=== PATIENT | male | born 1950 | race Caucasian/White ===

== ENCOUNTER 2018-03-11 12:37 | Inpatient (IN) | payer BC, OTHER ==
[~2018-03-11] VITALS: Ht 175.3 cm; Wt 100.7 kg
[~2018-03-11 12:37] MED LIST: ALLOPURINOL 10100 M1 PO; ASPIR 8181 M1 PO; COREG3.125 MG PO; EFFIENT10 MG PO; LIPITOR 20 MG T20 M1 PO; LOPRESSOR25 PO
[2018-03-11 12:43] VITALS: BP 189/109
[2018-03-11] MEDS ORDERED: LISINOPRIL2.5 MG PO (12:45)
[2018-03-11] MEDS ORDERED: PLAVIX 75 MG TA75 M1 PO (12:46)
[2018-03-11 13:10] LABS: ABSOLUTE BASOPHILS 0.1 thou/uL (0.0-0.2); ABSOLUTE EOSINOPHILS 0.2 thou/uL (0.0-0.7); ABSOLUTE LYMPHOCYTES 1.4 thou/uL (0.8-5.3); ABSOLUTE MONOCYTES 0.7 thou/uL (0.0-1.2); ABSOLUTE NEUTROPHILS 5.9 thou/uL (1.6-8.1); EOSINOPHILS 2.3 %; HEMATOCRIT 50.5 % (42.0-52.0); HEMOGLOBIN 16.9 gm/dL (14.0-18.0); LYMPHOCYTES 17.2 %; MCH 32.2 pg (26.0-34.0); MCHC 33.4 g/dL (28.0-37.0); MCV 96.5 fL (80.0-100.0); MONOCYTES 8.2 %; MPV 9.2 fl. (7.2-11.1); NUCLEATED RBCS 0 /100WBC; PLATELET COUNT* 201 thou/uL (150-400); POLYS 71.3 %; RBC 5.24 mil/uL (4.50-6.00); RDW-CV 14.2 % (10.5-14.5); WBC 8.3 thou/uL (4.0-11.0)
[2018-03-11 13:42] LABS: ANION GAP 8 mmol/L (7-16); BUN 12 mg/dL (7-18); CALCIUM 8.7 mg/dL (8.5-10.1); CHLORIDE 104 mmol/L (98-107); CO2 30 mmol/L (21-32); CREATININE 0.7 mg/dL (0.6-1.3); GLUCOSE 146 mg/dL (70-99); POTASSIUM 5.3 mmol/L (3.5-5.1); SODIUM 142 mmol/L (136-145)
[2018-03-11 13:55] LABS: ALBUMIN 3.5 g/dL (3.4-5.0); ALKALINE PHOSPHATASE 72 U/L (46-116); LIPASE 143 U/L (73-393); MAGNESIUM 1.9 mg/dL (1.8-2.4); NT-PRO BRAIN NAT PEPTIDE < 5 pg/mL (<300); SGOT 39 U/L (15-37); SGPT 32 U/L (30-65); TOTAL BILIRUBIN 0.7 mg/dL (<0.1-1.0); TOTAL PROTEIN 6.9 g/dL (6.4-8.2); TROPONIN-I LEVEL <0.06 ng/mL (<0.06)
--- NOTE | 2018-03-11 18:02 | 2DMMODE ---
[place] [address] 2 D/M-MODE ECHOCARDIOGRAM Name: MONICA HURD Room: [address] IN [facility]#: [id number] Admission: 03/11/18 Attend Phys: Sharmila Maldonado, Discharge: Date of : 52 Date of Service: 03/11/181801 Report #: [id number] THIS REPORT FOR: //name// APPROVED REPORT Study performed: 03/11/2018 15:22:49 EXAM: Comprehensive 2D, Doppler, and color-flow Echocardiogram Patient Location: In-Patient Room #: ER Status: routine BSA: 2.25 HR: 57 bpm BP: 147/85 mmHg Rhythm: NSR Other Information Study Quality: Good Indications CAD Chest Pain 2D Dimensions IVSd: 13.51 (7-11mm) LVOT Diam: 21.91 (18-24mm) LVDd: 48.16 mm PWd: 11.91 (7-11mm) Ascending Ao: 34.69 (22-36mm) LVDs: 34.32 (25-40mm) Aortic Root: 37.26 mm Volumes Left Atrial Volume (Systole) LA ESV Index: 23.30 mL/m2 Aortic Valve AoV Peak Noble.: 1.12 m/s AO Peak Gr.: 5.06 mmHg LVOT Max P.75 mmHg AO Mean Gr.: 2.76 mmHg LVOT Mean P.11 mmHg LVOT Max V: 0.83 m/s AO V2 VTI: 24.21 cm LVOT Mean V: 0.47 m/s MADAN (VTI): 2.80 cm2 LVOT V1 VTI: 17.96 cm Mitral Valve E/A Ratio: 0.58 MV Decel. Time: 404.03 [place] [address] 2 D/M-MODE ECHOCARDIOGRAM Name: MONICA HURD Room: [address] IN M.R.#: [id number] Admission: 03/11/18 Attend Phys: Sharmila Maldonado, Discharge: Date of : 52 Date of Service: 03/11/181801 Report #: [id number] MV E Max Noble.: 0.50 m/s MV PHT: 117.17 ms MVA (PHT): 1.88 cm2 TDI E/Lateral E': 6.25 E/Medial E': 10.00 Medial E' Noble.: 0.05 m/s Lateral E' Noble.: 0.08 m/s Pulmonary Valve PV Peak Noble.: 0.76 m/s PV Peak Gr.: 2.32 mmHg Tricuspid Valve RAP Estimate: 5.00 mmHg TR Peak Gr.: 22.72 mmHg RVSP: 27.00 mmHg PA Pressure: 27.00 mmHg Left Ventricle The left ventricle is normal size. There is mild global hypokinesis. Mild concentric left ventricular hypertrophy. Left ventricular systolic function is mildly decreased. LVEF is 45-50%. Grade I - abnormal relaxation pattern. Right Ventricle Right ventricle is dilated. The right ventricular systolic function is normal. Atria The left atrium size is normal. Right atrium is mildly dilated. Aortic Valve The aortic valve is normal in structure. No aortic regurgitation is present. There is no aortic valvular stenosis. Mitral Valve The mitral valve is normal in structure. There is no mitral valve regurgitation noted. No evidence of mitral valve stenosis. Tricuspid Valve The tricuspid valve is normal in structure. Trace tricuspid regurgitation. No pulmonary hypertension. Pulmonic Valve The pulmonary valve is normal in structure. Mild [place] [address] 2 D/M-MODE ECHOCARDIOGRAM Name: MONICA HURD Room: [address] IN [facility]#: [id number] Admission: 03/11/18 Attend Phys: Sharmila Maldonado, Discharge: Date of : 52 Date of Service: 03/11/18 180 Report #: [id number] Great Vessels The aortic root is normal in size. IVC is normal in size and collapses >50% with inspiration. Pericardium There is no pericardial effusion. <Conclusion> The left ventricle is normal size. Mild concentric left ventricular hypertrophy. Left ventricular systolic function is mildly decreased. LVEF is 45-50%. Grade I - abnormal relaxation pattern. There is mild global hypokinesis. Right ventricle is dilated. Right atrium is mildly dilated. Trace tricuspid regurgitation. No pulmonary hypertension. IVC is normal in size and collapses >50% with inspiration. <ELECTRONICALLY SIGNED> By: Jose Raymond MD, FACC 03/11/181801 01 01 Jose Raymond MD, FACC /INF
--- NOTE | 2018-03-11 18:18 | EKG ---
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 LEAL : 1950 Requested By: Joe Calderon Order Number: [id number] MD: Jose Raymond Measurements Intervals Jackson Rate: 57 P: 36 AK: 176 QRS: 206 QRSD: 107 T: -13 QT: 419 QTc: 408 Interpretive Statements Sinus rhythm Consider right ventricular hypertrophy Inferior infarct, age indeterminate Abnrm T, consider ischemia, anterolateral lds Compared to ECG 05/06/2016 08:48:12 Possible ischemia now present Myocardial infarct finding still present Electronically Signed On 03-11-2018 18:17:52 HR MANAGER by Jose Raymond [email or web address] <ELECTRONICALLY SIGNED> By: Jose Raymond MD, FACC 03/11/18 1817 1241 1241 Jose Raymond MD, FAC /EPI
[2018-03-11 18:38] VITALS: BP 174/92
[2018-03-11 19:14] VITALS: BP 153/87
[2018-03-11 23:30] VITALS: BP 151/89
[2018-03-12 03:08] LABS: GLYCOHEMOGLOBIN (HGB A1C) 6.4 % (4.8-5.6)
[2018-03-12 04:00] VITALS: BP 165/89
[2018-03-12 05:21] LABS: HEMATOCRIT 50.7 % (42.0-52.0); HEMOGLOBIN 16.8 gm/dL (14.0-18.0); MCH 32.4 pg (26.0-34.0); MCHC 33.1 g/dL (28.0-37.0); MCV 97.7 fL (80.0-100.0); MPV 8.9 fl. (7.2-11.1); RBC 5.19 mil/uL (4.50-6.00); RDW-CV 14.2 % (10.5-14.5); WBC 7.9 thou/uL (4.0-11.0)
[2018-03-12 05:45] LABS: CALCIUM 9.1 mg/dL (8.5-10.1); CREATININE 0.9 mg/dL (0.6-1.3); POTASSIUM 5.4 mmol/L (3.5-5.1)
[2018-03-12 05:48] LABS: ALBUMIN 3.5 g/dL (3.4-5.0); TOTAL BILIRUBIN 0.6 mg/dL (<0.1-1.0); TOTAL PROTEIN 6.4 g/dL (6.4-8.2)
[2018-03-12 08:38] VITALS: BP 182/92
[2018-03-12 11:30] VITALS: BP 153/81
--- NOTE | 2018-03-12 13:28 | CON ---
[address] [address] CONSULTATION Name: VICKEY,MONICA Room: [address] IN M.R.#: [id number] Admission: 03/11/18 Attend Phys: Sharmila Maldonado MD Discharge: Date of : 52 Report #: [id number] THIS REPORT FOR: //name// CC: Steff Maldonado DATE OF SERVICE: 03/12/2018 HISTORY OF PRESENT ILLNESS: The patient is a 67-year-old white male who I saw in the hospital after he had an episode of chest pain. The patient initially presented here to [place] in June of 2015. He was having chest pain. He underwent a stress test that was abnormal. He was brought to the [facility] as an outpatient for cardiac catheterization. He was found to have a subtotal occlusion of the right coronary artery filled by collaterals. He underwent reperfusion of the right coronary artery, had stent placed. There was a total of 3 stents placed. He was discharged on aspirin and Effient. The procedure was performed by Dr. Alexander. He then presented 10 months later with an acute inferior STEMI. The patient underwent urgent cardiac catheterization and appeared to be thrombus. He underwent balloon angioplasty. No additional stents were placed at that time. The patient has done fairly well since that time. He last saw Dr. Raymond in November. He was doing well at that time. Recently, he notes with exertion he developed some pain in his chest, became short of breath. Denied diaphoresis, nausea. The pain is relieved with rest. He has never had to take nitroglycerin. The pain is not related to food, coughing. He has had no trauma to the chest. Denied any bleeding anywhere. Because of these symptoms, he finally came to the hospital yesterday and was admitted. He notes exertional dyspnea. He has had no palpitation or syncope. PAST MEDICAL HISTORY: He has had cholecystectomy, hernia repair, rotator cuff surgery. In the past, he had a nerve stimulator in place. He has history of hypertension, hyperlipidemia. MEDICATIONS: Include allopurinol, aspirin, Lipitor, clopidogrel, lisinopril, metoprolol. ALLERGIES: He has a previous intolerance to CORTISONE. FAMILY HISTORY: Unknown. SOCIAL HISTORY: He is . He and his live in [place], [place]. 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 Quit smoking years ago. No alcohol abuse. REVIEW OF SYSTEMS: He has had no history of stroke, asthma, peptic ulcer disease, liver disease, kidney disease, cancer or psychiatric illness, chronic skin condition. He does wear glasses[place] [address] CONSULTATION Name: MONICA HURD Room: [address] IN M.R.#: [id number] Admission: 03/11/18 Attend Phys: Sharmila Maldonado MD Discharge: Date of : 52 Report #: [id number] PHYSICAL EXAMINATION: GENERAL: Revealed a middle-aged male who appeared in no distress. VITAL SIGNS: He had a blood pressure of 140/80s, pulse is 60. He is afebrile. HEENT: He is anicteric. Conjunctivae pink. Mucous membranes moist. NECK: Veins nondistended. No carotid bruits. Neck supple. CHEST: Clear to auscultation. CARDIOVASCULAR: Regular rate and rhythm. ABDOMEN: Soft. EXTREMITIES: Had no edema. Posterior tibial pulse 2+ bilaterally. SKIN: Warm, dry. NEUROLOGIC: Nonfocal. LABORATORY DATA: His ECG showed a sinus rhythm, evidence of previous inferior infarction. The patient had an echocardiogram that showed left ventricular hypertrophy, ejection fraction 45%. Right ventricular dilatation. His workup in the Emergency Room, he had normal heart size and mild changes only. His lab work, sodium 147, creatinine 0.9, glucose 106. Liver function studies were normal. Troponin 0.06. White blood cell count 7.9, hemoglobin 16.8. IMPRESSION AND RECOMMENDATIONS: 1. Crescendo angina. Recommend repeat cardiac catheterization. 2. Hypertension. The patient is on an GLORIA inhibitor and beta elvin. 3. Hyperlipidemia. The patient is on a statin drug. 4. Chronic back pain. The patient had a nerve stimulator in the past. 5. Previous tobacco abuse. <ELECTRONICALLY SIGNED> By: Elbert Buck MD, FACC 03/12/18 1328 0820 1220Davishelbi Buck MD, FAC /nt
[2018-03-12 15:10] VITALS: BP 131/71
[2018-03-12 15:13] LABS: ALBUMIN 3.3 g/dL (3.4-5.0); CALCIUM 8.9 mg/dL (8.5-10.1); CREATININE 0.9 mg/dL (0.6-1.3); TOTAL BILIRUBIN 0.5 mg/dL (<0.1-1.0); TOTAL PROTEIN 6.3 g/dL (6.4-8.2)
[2018-03-12 15:16] LABS: POTASSIUM 4.3 mmol/L (3.5-5.1)
[2018-03-12 19:30] VITALS: BP 139/80
[2018-03-13] VITALS (14 sets, daily range): BP systolic 111–168; BP diastolic 52–82
[2018-03-13 05:55] LABS: CHOLESTEROL 123 mg/dL (<200); HDL CHOLESTEROL 34 mg/dL (>40); LDL CHOLESTEROL 55 mg/dL (<100); TC:HDL 3.6 Ratio (Not establshd); TRIGLYCERIDE 173 mg/dL (<150); VLDL 35 mg/dL (<40)
[2018-03-13 06:01] LABS: SERUM ASSESSMENT Clear
--- NOTE | 2018-03-13 12:09 | CARD ---
[address] [address] CARDIAC CATH REPORT Name: MONICA HURD Room: 202-P ADM IN M.R.#: [id number] Admission: 03/11/18 Attend Phys: Sharmila Maldonado MD Discharge: Date of : 52 Report #: [id number] THIS REPORT FOR: //name// APPROVED REPORT Study performed: 03/13/2018 08:00:40 Patient Details Patient Status: In-Patient Room #: 202 The patient is a 67 year-old male Event Personnel Elbert Buck Printed Products Assembler, Lori Jeter RN Mix House Operator, Wendy Castillo RTR Monitor, Steff Hager Scrub Procedures Performed Art Access - Right radial artery Left Heart Cath w/or w/o Coronaries [facility] Indication Chest pain Risk Factors Arterial Hypertension, Hypercholesterolemia, Coronary Artery Disease Previous Procedures/Diagnoses Previous PCI Admission/Lab Medications/Medications given during procedure Heparin Unfract. Procedure Narrative The patient was brought electively to the Cardiac Catheterization Laboratory and was prepped and draped in a sterile manner. The right wrist was infiltrated with 2% Lidocaine subcutaneous anesthesia. A Slender Glidesheath sheath was inserted into the right radial artery. Coronary angiography was performed using coronary diagnostic catheters. The right coronary system was accessed and visualized with a Diagnostic 6Fr 3DRC catheter. The left coronary system was accessed and visualized with a Diagnostic 6Fr JL4 catheter. The left ventricle was accessed and visualized with a Diagnostic 6Fr angled pigtail catheter. Left ventricular/Aortic Valve gradient assessed via catheter pullback. [place] [address] CARDIAC CATH REPORT Name: MONICA HURD Room: [address] IN [facility].#: [id number] Admission: 03/11/18 Attend Phys: Sharmila Maldonado MD Discharge: Date of : 52 Report #: [id number] projection. Closure device was deployed with a 6 Fr Vasc-Band Reg 24cm. The patient tolerated the procedure well and there were no complications associated with the procedure. There was no hematoma. Intraoperative Conscious Sedation Sedation start time: 907 Case end Time: 942 Fentanyl 25 mcg Versed 2 mg Fluoro Time: 5.0 minutes Dose: DAP 08255 cGycm2 94.8 mGy Contrast Type and Amount: Visipaque 140 ml Coronary Angiography The patient's coronary anatomy is right dominant. Diagnostic Cath Left Main 30% distal stenosis LAD 0% stenosis Circumflex 50% mid stenosis Right Coronary proximal stent had 0% restenosis. Mid rca had 30% stenosis. Distal stent had 0% restenosis R PDA 50% mid stenosis Left Ventriculography The left ventricular ejection fraction is estimated to be 40-45%. Left ventricular wall motion abnormalities are present. There is no mitral insufficiency. moderate hypokinesis noted of the inferior wall Hemodynamics The aortic pressure is 119/85 mmHg with a mean of 98 mmHg. The left ventricular pressure is 142/10 mmHg with a mean of mmHg. The left ventricular end diastolic pressure is 16 mmHg. There was no gradient across the aortic valve upon pullback. Pullback from the left ventricle to the aorta revealed no gradient across the aortic valve. Conclusion 1. no restenosis noted of stents in the rca 2. 50% stenosis of the mid circumflex artery and 50% stenosis of the distal rca 3. LVEF 40-45% [place] [address] CARDIAC CATH REPORT Name: MONICA HURD Room: [address] IN M.R.#: [id number] Admission: 03/11/18 Attend Phys: Sharmila Maldonado MD Discharge: Date of : 52 Report #: [id number] Recommendations Aggressive Medical Therapy <ELECTRONICALLY SIGNED> By: Elbert Buck MD, FACC 03/13/18 1208 07 Elbert Buck MD, FACC /INF
[2018-03-14] VITALS (7 sets, daily range): BP systolic 123–136; BP diastolic 49–72
[2018-03-14] MEDS ORDERED: PREDNISONE 10 M10 MG PO (14:20)
[2018-03-14] MEDS ORDERED: IPRAT-ALBUT 0.5-3 ML INH (14:28)
[2018-03-14] MEDS ORDERED: AZITHROMYCIN 2250 MG PO (14:34)
[2018-03-14] MEDS ORDERED: NITROGLYCERIN0.4 MG SUBLING (15:26)
[2018-03-14] MEDS ORDERED: TYLENOL EXTRA500 MG PO (15:27)
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
== END 2018-03-14 16:05 | disposition home health service (06) | DRG 286 ==
LOC: M.ERS 12:37 → M.2W 14:26 → M.TBA-ER 14:26 → M.2W 18:56
PROVIDERS: Emergency Medicine Emergency Medical Services; Internal Medicine Cardiovascular Disease; ADMIT Internal Medicine
DX: I25.110 Atherosclerotic heart disease of native coronary artery with unstable angina pectoris (principal); I50.43 Acute on chronic combined systolic (congestive) and diastolic (congestive) heart failure; J96.00 Acute respiratory failure, unspecified whether with hypoxia or hypercapnia; J98.11 Atelectasis; I11.0 Hypertensive heart disease with heart failure; G89.29 Other chronic pain; M54.9 Dorsalgia, unspecified; J44.9 Chronic obstructive pulmonary disease, unspecified; E78.5 Hyperlipidemia, unspecified; Z95.5 Presence of coronary angioplasty implant and graft; Z79.82 Long term (current) use of aspirin; Z91.030 Bee allergy status; Z79.899 Other long term (current) drug therapy; Z88.8 Allergy status to other drugs, medicaments and biological substances; Z87.891 Personal history of nicotine dependence

== ENCOUNTER → 2018-05-14 | Outpatient (CLI) | payer BC, OTHER ==
[~2018-05-14] MED LIST changes: +AZITHROMYCIN 2250 MG PO; +IPRAT-ALBUT 0.5-3 ML INH; +LISINOPRIL2.5 MG PO; +NITROGLYCERIN0.4 MG SUBLING; +PLAVIX 75 MG TA75 M1 PO; +PREDNISONE 10 M10 MG PO; +TYLENOL EXTRA500 MG PO
--- NOTE | 2018-05-17 00:02 | SLEEP ---
[address] [address] SLEEP STUDY REPORT Name: MONICA HURD Room: [facility]#: [id number] Admission: 05/14/18 Attend Phys: Adriana Lancaster MD Discharge: Date of : 52 Report #: [id number] THIS REPORT FOR: //name// CC: Steff Lancaster MD This study has been reviewed in its entirety by a board certified sleep specialist DATE OF SERVICE: 05/14/2018 ATTENDING PHYSICIAN: Dr. Adriana Lancaster. The patient is 68-year-old who underwent sleep study at [facility] to rule out TRAMAINE. This was a split night study. The patient's weight was not reported. During the night study, the patient spent 370 minutes in bed and slept for 177 minutes with a low sleep efficiency of 48%. Sleep latency was 24 minutes with a REM latency of 206 minutes. Overall, sleep architecture showed an increased stage 1 sleep, normal stage 2 sleep, increased N3 sleep and reduced REM sleep, which was 15% of the total sleep time. During the initial diagnostic portion of the study, the patient slept for 65 minutes from 118 minutes of bedtime. During that time, the patient has no apneas, but 35 hypopneas. The patient's apnea hypopnea index was 32 per hour. The patient did not have REM sleep during the diagnostic portion. The patient's supine AHI was 48 per hour. EKG monitoring revealed an average heart rate of 60 beats per minute with a maximum 83 beats per minute. No sustained arrhythmias observed. EKG artifact seen during later part of study. PLMS were seen at an index of 33 per hour and 11 per hour caused EEG arousals. Nocturnal oximetry study during the diagnostic portion revealed an average oxygen saturation of 87%, with a lowest of 78%. 59 minutes were spent at an oxygen saturation less than 89%. The patient met the criteria for CPAP initiation. It was started at 6 cm water and titrated up to 19 cm water. Supine REM sleep was seen at the pressure of 18 cm water, but the patient's AHI was 19 per hour at that pressure. At a pressure of 19 cm water, the patient had 11 minutes of sleep. The patient had supine sleep throughout, but no REM sleep observed. The patient's AHI was 0 per hour and oxygen saturation remained above 88%. It is difficult [place] [address] SLEEP STUDY REPORT Name: MONICA HURD Room: [facility]#: [id number] Admission: 05/14/18 Attend Phys: Adriana Lancaster MD Discharge: Date of : 52 Report #: [id number] is the optimum pressure, but he would be eventually recommended. IMPRESSION: 1. Severe sleep apnea-hypopnea syndrome at an AHI of 32 per hour. 2. Nocturnal hypoxia secondary to obstructive sleep apnea, but resolved with CPAP. 3. Moderate PLMS which did improve while the patient on CPAP and the index reduced from 33 per hour to 15 per hour. RECOMMENDATIONS: 1. CPAP at 19 cm water should be used on a nightly basis. 2. Follow up in 4-6 weeks to assess compliance and also to review the download data. It should be noted that limited sleep was seen at the final pressure of 19 cm water and a download data would be helpful to make sure AHI remains less than 5 per hour. 3. Weight loss is advised. 4. Avoid FREIGHT TRUCKER depressants. 5. Cautioned regarding driving until symptoms of sleep apnea resolve with the use of CPAP. <ELECTRONICALLY SIGNED> By: Kash Danielson MD 05/17/18 0002 1708 1928Amuna Danielson MD /nt
== END ==
LOC: M.SLEEPLAB 20:20
DX: G47.33 Obstructive sleep apnea (adult) (pediatric) (principal); G47.61 Periodic limb movement disorder; J44.9 Chronic obstructive pulmonary disease, unspecified; R09.02 Hypoxemia; R06.83 Snoring

== ENCOUNTER 2019-02-14 22:35 | Inpatient (IN) | payer BC, OTHER ==
[~2019-02-14] VITALS: Ht 175.3 cm; Wt 109.8 kg
--- NOTE | 2019-02-14 22:35 | NUR ---
PT ADMITTED TO ER 18 WITH CHEST PAIN. CODE STEMI CALLED AT 2241 SEE STEMI DOCUMENTATION SHEET FOR TIMES AND MEDICATIONS. PT TRANSPORTED TO SCRIPT DEVELOPER VIA [facility]RETHER PER SCRIPT DEVELOPER AT 2305. [facility] INTACT. PT IN NO ACUTE DISTRESS AT THIS TIME.
[2019-02-14 22:40] VITALS: BP 202/115
[2019-02-14] MEDS ORDERED: METFORMIN HCL500 M3 PO (22:51)
[2019-02-14 22:54] LABS: ABSOLUTE BASOPHILS 0.1 thou/uL (0.0-0.2); ABSOLUTE EOSINOPHILS 0.2 thou/uL (0.0-0.7); ABSOLUTE LYMPHOCYTES 1.5 thou/uL (0.8-5.3); ABSOLUTE NEUTROPHILS 8.7 thou/uL (1.6-8.1); BASOPHILS 0.9 %; HEMATOCRIT 43.9 % (42.0-52.0); HEMOGLOBIN 14.9 gm/dL (14.0-18.0); LYMPHOCYTES 12.6 %; MCH 31.9 pg (26.0-34.0); MCV 93.7 fL (80.0-100.0); MONOCYTES 8.9 %; MPV 8.9 fl. (7.2-11.1); NUCLEATED RBCS 0 /100WBC; PLATELET COUNT* 227 thou/uL (150-400); POLYS 75.6 %; RBC 4.69 mil/uL (4.50-6.00); RDW-CV 13.4 % (10.5-14.5); WBC 11.5 thou/uL (4.0-11.0)
[2019-02-14 23:02] LABS: CALCIUM 9.3 mg/dL (8.5-10.1); CREATININE 1.4 mg/dL (0.6-1.3)
[2019-02-14 23:05] VITALS: BP 193/102
[2019-02-14 23:06] LABS: PROTIME 10.5 Seconds (9.20-11.50)
[2019-02-14 23:13] LABS: ALBUMIN 4.2 g/dL (3.4-5.0); TOTAL BILIRUBIN 0.4 mg/dL (<0.1-1.0); TOTAL PROTEIN 7.7 g/dL (6.4-8.2)
[2019-02-15] VITALS (33 sets, daily range): BP systolic 127–167; BP diastolic 58–90
--- NOTE | 2019-02-15 02:00 | NUR ---
PT. ADMITTED TO ROOM 7 AT 0030 POST CARDIAC CATH. INTERVENTION-1 STENT RCA. PT. ARRIVED TO UNIT WITH ARTERIAL SHEATH IN PLACE, TO BE PULLED AT 0230 BY ENVIRONMENTAL PLANNER. PT. VERY PLEASANT, DENIES PAIN. AND TWO FRIENDS PRESENT. SEE ADMISSION ASSESSMENT. 2L O2. SINUS RHYTHM. POST PROCEDURE EKG OBTAINED. PT. ORIENTED TO ROOM, INSTRUCTED TO LEAVE RIGHT LEG STRAIGHT, VERBALIZED UNDERSTANDING. CALL LIGHT IN REACH, WILL CONTINUE TO MONITOR.
[2019-02-15 05:14] LABS: HEMOGLOBIN 13.6 gm/dL (14.0-18.0); MCH 31.8 pg (26.0-34.0); MCHC 33.9 g/dL (28.0-37.0); MCV 93.6 fL (80.0-100.0); MPV 9.1 fl. (7.2-11.1); RBC 4.28 mil/uL (4.50-6.00); RDW-CV 13.5 % (10.5-14.5); WBC 8.7 thou/uL (4.0-11.0)
[2019-02-15 05:38] LABS: ALBUMIN 3.5 g/dL (3.4-5.0); ALKALINE PHOSPHATASE 71 U/L (46-116); ANION GAP 9 mmol/L (7-16); BUN 15 mg/dL (7-18); CALCIUM 8.8 mg/dL (8.5-10.1); CHLORIDE 106 mmol/L (98-107); CO2 27 mmol/L (21-32); CREATININE 0.9 mg/dL (0.6-1.3); GLUCOSE 128 mg/dL (70-99); POTASSIUM 4.1 mmol/L (3.5-5.1); SGOT 83 U/L (15-37); SGPT 49 U/L (30-65); SODIUM 142 mmol/L (136-145); TOTAL BILIRUBIN 0.5 mg/dL (<0.1-1.0); TOTAL PROTEIN 6.5 g/dL (6.4-8.2)
[2019-02-15 06:13] LABS: CHOLESTEROL 209 mg/dL (<200); HDL CHOLESTEROL 32 mg/dL (>40); LDL CHOLESTEROL 115 mg/dL (<100); TC:HDL 6.5 Ratio (Not establshd); TRIGLYCERIDE 313 mg/dL (<150); VLDL 63 mg/dL (<40)
[2019-02-15 06:25] LABS: SERUM ASSESSMENT Slight Lipemia
--- NOTE | 2019-02-15 08:23 | CARD ---
[address] [address] CARDIAC CATH REPORT Name: MONICA HURD Room: [address] ADM IN M.R.#: [id number] Admission: 02/14/19 Attend Phys: Mumtaz Ayala Discharge: Date of : 52 Report #: [id number] THIS REPORT FOR: //name// APPROVED REPORT Study performed: 02/14/2019 23:03:08 Patient Details Patient Status: ED Room #: The patient is a 68 year-old male Event Personnel Deeede Flores RN Compliance Director, Steff Castillo Compliance Director, Brendan Sterling RTR Scrub, Tristian Benjamin DESIGN MAINTENANCE ENGINEER Monitor, Armando Castillo Form Raiser Procedures Performed Left Heart Cath Coronaries, Bypass Grafts [id number] CCORCABG LAZARO Place w/wo Plasty Single RCA [id number] , Right transradial approach Indication STEMI (>0 to less than or equal to 6 hours), Dyspnea, Chest pain Risk Factors Obesity, Chronic Lung DiseaseHypercholesterolemia, Coronary Artery DiseaseHypertension Previous Procedures/Diagnoses Previous PCI, Previous IL Procedure Narrative The patient was brought emergently to the Cardiac Catheterization Laboratory and was prepped and draped in a sterile manner. The right femoral was infiltrated with 2% Lidocaine subcutaneous anesthesia. A 6fr Ultimum Sheath sheath was inserted into the right femoral artery. Coronary angiography was performed using coronary diagnostic catheters. The left coronary system was accessed and visualized with a Diagnostic 6 Fr JL 4 catheter. The left ventricle was accessed and visualized with a Diagnostic 6Fr Pigtail catheter. The patient tolerated the procedure well and there were no complications associated with the procedure. There was no hematoma. Intraoperative [place] [address] CARDIAC CATH REPORT Name: MONICA HURD Room: [address] IN [facility]#: [id number] Admission: 02/14/19 Attend Phys: Mumtaz Ayala Discharge: Date of : 52 Report #: [id number] Sedation start time: 11:23 Case end Time: 12:07 Fentanyl 50 mcg Versed 1 mg Fluoro Time: 13.6 minutes Dose: DAP 389890 cGycm2 2555.28 mGy Contrast Type and Amount: Visipaque 200 ml Coronary Angiography The patient's coronary anatomy is right dominant. Diagnostic Cath Left Main This is a large caliber vessel, patent with no flow-limiting lesions. LAD This is a moderate size caliber vessel, traversing the anterior wall and terminating at the apex. There is mild diffuse disease in the mid segment, 20%. Diagonal 1 This is a small to moderate size caliber vessel, patent with no flow-limiting lesions. Diagonal 2 This is a small to moderate size caliber vessel, patent with no flow-limiting lesions. Circumflex This is a small to moderate size caliber vessel, with a moderate stenosis in the mid segment, 60%. OM1 This is a small to moderate size caliber vessel, patent with no flow-limiting lesions. Right Coronary This is a dominant vessel, with previously placed stents in the proximal/ostium and mid/distal segments. Within the mid RCA stented segment, there is a subtotal restenotic lesion, with evidence of thrombus. There is KIM 2 blood flow in the distal RCA. This is the same site of his previous inferior wall IL presentation in 2017. During that presentation, only balloon angioplasty was able to be performed. R PDA This is a moderate size caliber vessel, patent with mild disease. RPLV This is a moderate size caliber vessel, with an occlusion in the mid segment. Left Ventriculography Left Ventriculography was not performed. An LVEDP was measured and there is no gradient across the outflow tract. A ventriculogram was not performed in view of an elevated creatinine. Hemodynamics The aortic pressure is 176/87 mmHg with a mean of 32 [place] [address] CARDIAC CATH REPORT Name: MONICA HURD FABIO Room: [address] IN .R.#: [id number] Admission: 02/14/19 Attend Phys: Mumtaz Ayala Discharge: Date of : 52 Report #: [id number] ventricular pressure is 174/12 mmHg with a mean of mmHg. The left ventricular end diastolic pressure is 23 mmHg. PCI Technique Lesion Anticoagulation was achieved with Angiomax. Patient was preloaded with Angiomax IV 17 ml. Percutaneous coronary intervention was performed on the mid right coronary artery. The lesion stenosis prior to intervention was 99% with KIM 2 flow. A 6F JR 4.0 Guide Catheter was used to engage the RCA ostium. A IG: Luge Wire 180 Interventional Guidewire was used to cross the lesion. BALLOON DILATION A Balloon catheter Trek RX 2.5 X 15 was inserted and inflated up to 14.00atm for 22seconds. Additional Inflation: 16.00atm for 19seconds. STENT DEPLOYMENT A drug-eluting stent Xience Elise 3.09Z34wx was inserted and inflated up to 14.00atm for 22seconds. POST STENT DEPLOYMENT BALLOON DILATION A Balloon catheter NC TREK RX 3.5X12 was inserted and inflated up to 18.00atm for 12seconds. Additional Inflation: 18.00atm for 15seconds. Additional Inflation: 20.00atm for 16seconds. Final angiography reveals 5 % stenosis with KIM 3 flow. Conclusion 1. Successful placement of a drug-eluting stent into the subtotal restenotic lesion within the mid RCA segment. 2. High pressure balloon angioplasty with a noncompliant balloon in the ostial/proximal RCA stent. 3. Moderate disease in the left circumflex artery. 4. Recommend dual antiplatelet therapy and aggressive risk factor management. <ELECTRONICALLY SIGNED> By: Armando Castillo MD 02/15/19821 1 1Armando Castillo MD /INF
--- NOTE | 2019-02-15 11:26 | NUR ---
Pt up from ICU. Pt is A&O. Resides at home with his . Independent. Pt has a cane that he can use for mobility if needed. Pt wears home o2 PRN provided through [employer], Pt also has a home neb and a cpap. Goal is home at dc, per nurse anticipate dc tomorrow.
--- NOTE | 2019-02-15 13:29 | EKG ---
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: : 1950 Requested By: Karen Santana Order Number: [id number] MD: Elbert Buck Measurements Intervals [place] Rate: 72 P: 67 [place]: 183 QRS: 110 QRSD: 112 T: 95 QT: 384 QTc: 421 Interpretive Statements Sinus rhythm Inferoposterior infarct, acute (RCA) Minimal ST elevation, anterior leads Lateral leads are also involved Probable RV involvement, suggest recording right precordial leads Compared to ECG 03/11/2018 12:41:58 ST (T wave) deviation now present Electronically Signed On 02-15-2019 13:29:33 SHRIMP PACKER by Elbert Buck [email or web address] <ELECTRONICALLY SIGNED> By: Elbert Buck MD, FACC 02/15/19 1329 224 [id number] Elbert Buck MD, FACC /EPI
--- NOTE | 2019-02-15 13:31 | EKG ---
[place] [address] ELECTROCARDIOGRAM REPORT Name: MONICA HURD Room: [address] ADM IN .R.#: [id number] Admission: 02/14/19 Attend Phys: Mumtaz Ayala Discharge: Date of : 52 Report #: [id number] THIS REPORT FOR: //name// [facility] Test Date: 2019-02-15 Test Time: 02:33:25 Pat Name: MONICA HURD Department: Room: [facility] Gender: M Pumpman: DENTON : 1950 Requested By: Armando Castillo Order Number: [id number] Monika MD: Elbert Buck Measurements Intervals [place] Rate: 64 P: 10 NC: 189 QRS: -13 QRSD: 113 T: 36 QT: 450 QTc: 465 Interpretive Statements Sinus rhythm Incomplete right bundle branch block Abnormal R-wave progression, late transition Inferior infarct, old Electronically Signed On 02-15-2019 13:30:48 RECORDIST by Elbert Buck [email or web address] <ELECTRONICALLY SIGNED> By: Elbert Buck MD, [facility] 02/15/19 1330 0233 023 Elbert Buck MD, FACC /EPI
--- NOTE | 2019-02-15 13:34 | EKG ---
[place] [address] ELECTROCARDIOGRAM REPORT Name: MONICA HURD Room: [address] ADM IN .R.#: [id number] Admission: 02/14/19 Attend Phys: Mumtaz Ayala Discharge: Date of : 52 Report #: [id number] THIS REPORT FOR: //name// [facility] Test Date: 2019-02-15 Test Time: 09:48:00 Pat Name: MONICA HURD Department: Room: [facility] Gender: M Dialysis Registered Nurse: : 1950 Requested By: Armando Castillo Order Number: [id number] [place] MD: Elbert Buck Measurements Intervals [place] Rate: 58 P: 40 CT: 189 QRS: -73 QRSD: 118 T: -61 QT: 473 QTc: 465 Interpretive Statements Sinus rhythm Nonspecific IVCD with LAD Inferior infarct, recent Abnormal lateral Q waves Electronically Signed On 02-15-2019 13:34:08 DIMENSIONAL ENGINEER by Elbert Buck [email or web address] <ELECTRONICALLY SIGNED> By: Elbert Buck MD, [facility] 02/15/19 1334 0948 09 Elbert Buck MD, FACC /EPI
--- NOTE | 2019-02-15 18:42 | NUR ---
RECEIVED PATIENT FROM ICU AROUND 1015. UPON ASSESSMENT I AGREE WITH THE ASSESSMENT OF THE ICU NURSE. PATIENT ORIENTED TO ROOM, PATIENT UP AD GIOVANNY, PATIENT SINUS RHYTHM ON TELE. HOURLY ROUNDING PERFORMED, POSSESSIONS AND CALL LIGHT WITHIN REACH. NC@1L PRN, CPAP AT NIGHT. LEFT GROIN CATH SITE DRESSING CLEAN, DRY AND INTACT.
[2019-02-16] VITALS: BP 119/55
--- NOTE | 2019-02-16 03:49 | NUR ---
ASSUMED CARE OF PT AT 1900, PT'S R FA IV INFILTRATED, AND WAS REMOVED. PT STATED THIS CAUSED HIM A HEADACHE, USE OF PRN PAIN MEDICATION WAS GIVEN WITH COMPLETE RELIEF. FLUIDS STOPPED AT 0100 PER ORDER. NO OTHER CONCERNS VOICED BY PT. CURRENTLY ASLEEP WITH CALL LIGHT WITHIN REACH.
[2019-02-16 04:00] VITALS: BP 155/71
[2019-02-16 08:00] VITALS: BP 143/78
[2019-02-16] MEDS ORDERED: BRILINTA90 MG PO ×2 (11:12→14:24)
[2019-02-16 12:18] VITALS: BP 143/78
[2019-02-16] MEDS ORDERED: LIPITOR 40 MG T40 M1 PO (14:24)
[2019-02-16 14:28] VITALS: BP 135/65
--- NOTE | 2019-02-16 15:41 | 2DMMODE ---
[place] [address] 2 D/M-MODE ECHOCARDIOGRAM Name: MONICA HURD Room: [address] IN [facility]#: [id number] Admission: 02/14/19 Attend Phys: Petar Alberts Discharge: 02/16/19 Date of : 52 Date of Service: 02/16/19 1540 Report #: [id number] THIS REPORT FOR: //name// APPROVED REPORT Study performed: 02/16/2019 10:41:19 EXAM: Comprehensive 2D, Doppler, and color-flow Echocardiogram Patient Location: In-Patient Room #: 200 Status: routine BSA: 2.26 HR: 55 bpm BP: 155/71 mmHg Rhythm: NSR Other Information Study Quality: Good Indications Acute [place] 2D Dimensions IVSd: 11.28 (7-11mm) LVOT Diam: 21.84 (18-24mm) LVDd: 51.67 mm PWd: 11.01 (7-11mm) Ascending Ao: 35.26 (22-36mm) LVDs: 34.15 (25-40mm) Aortic Root: 37.57 mm Volumes Left Atrial Volume (Systole) LA ESV Index: 23.10 mL/m2 Aortic Valve AoV Peak Noble.: 1.06 m/s AO Peak Gr.: 4.47 mmHg LVOT Max P.42 mmHg AO Mean Gr.: 2.28 mmHg LVOT Mean P.08 mmHg LVOT Max V: 1.05 m/s AO V2 VTI: 21.98 cm LVOT Mean V: 0.66 m/s MADAN (VTI): 3.83 cm2 LVOT V1 VTI: 22.45 cm Mitral Valve E/A Ratio: 0.72 MV Decel. Time: 267.28 ms MV E Max Noble.: 0.73 m/[place] [address] 2 D/M-MODE ECHOCARDIOGRAM Name: MONICA HURD Room: [address]#: [id number] Admission: 02/14/19 Attend Phys: Petar Alberts Discharge: 02/16/19 Date of : 52 Date of Service: 02/16/19 1540 Report #: [id number] PHT: 77.51 ms MVA (PHT): 2.84 cm2 TDI E/Lateral E': 7.30 E/Medial E': 7.30 Medial E' Noble.: 0.10 m/s Lateral E' Noble.: 0.10 m/s Pulmonary Valve PV Peak Noble.: 1.04 m/s PV Peak Gr.: 4.32 mmHg Left Ventricle The left ventricle is normal size. There is normal LV segmental wall motion. There is normal left ventricular wall thickness. Left ventricular systolic function is normal. LVEF is 55-60%. Grade I - abnormal relaxation pattern. Right Ventricle The right ventricle is normal size. The right ventricular systolic function is normal. Atria The left atrium size is normal. The right atrium size is normal. Aortic Valve The aortic valve is normal in structure. No aortic regurgitation is present. There is no aortic valvular stenosis. Mitral Valve The mitral valve is normal in structure. There is no mitral valve regurgitation noted. No evidence of mitral valve stenosis. Tricuspid Valve The tricuspid valve is normal in structure. There is no tricuspid valve regurgitation noted. Pulmonic Valve The pulmonary valve is normal in structure. Trace pulmonic regurgitation. Great Vessels The aortic root is normal in size. IVC is normal in size and collapses >50% with inspiration[place] [address] 2 D/M-MODE ECHOCARDIOGRAM Name: MONICA HURD Room: [address]#: [id number] Admission: 02/14/19 Attend Phys: Petar Alberts Discharge: 02/16/19 Date of : 52 Date of Service: 02/16/19 1540 Report #: [id number] There is no pericardial effusion. <Conclusion> The left ventricle is normal size. There is normal left ventricular wall thickness. Left ventricular systolic function is normal. LVEF is 55-60%. Grade I - abnormal relaxation pattern. IVC is normal in size and collapses >50% with inspiration. <ELECTRONICALLY SIGNED> By: Jose Raymond MD, FACC 02/16/19 1540 1540 1540 Jose Raymond MD, FACC /INF
--- NOTE | 2019-02-16 20:50 | NUR ---
PT VSS, SB ON TELE, A&OX4, UP AD GIOVANNY, HOURLY ROUNDING PERFORMED, POSSESSIONS AND CALL LIGHT WITHIN REACH. REC DISCHARGE ORDERS, REVIEWED WITH PATIENT AND SPOUSE. TELE MONITOR AND IV REMOVED WITHOUT COMPLICATION. PATIENT WALKED TO THE ER EXIT BY NURSING STAFF AND PICKED UP BY SPOUSE.
--- NOTE | 2019-02-17 08:53 | CON ---
[address] [address] CONSULTATION Name: MONICA HURDBERT Room: [address] IN M.R.#: [id number] Admission: 02/14/19 Attend Phys: Mumtaz Ayala Discharge: 02/16/19 Date of : 52 Report #: [id number] THIS REPORT FOR: //name// CC: Steff Alberts DATE OF SERVICE: 02/14/2019 INDICATION: Chest pain. HISTORY OF PRESENT ILLNESS: This is a 68-year-old gentleman with a history of ND, COPD, diabetes mellitus, presenting with acute onset of chest pain. He developed substernal chest pain, nonradiating several hours prior to ER presentation. He also felt diaphoretic and dyspneic. He denies any episodes of fever, nausea or diarrhea. The ECG in the ER revealed ST segment elevation in the inferior leads. PAST MEDICAL HISTORY: History of inferior wall ND in 2017, undergoing angioplasty only. Previous history of stent placement in 2016. COPD, on oxygen p.r.n. at home. Diabetes mellitus, hypertension and hypercholesterolemia. ALLERGIES: INCLUDE PREDNISONE. MEDICATIONS: Aspirin 81 mg daily, albuterol inhaler, Lipitor 20 mg daily, metoprolol 25 mg daily, Plavix 75 mg daily, lisinopril 10 mg daily, allopurinol, and metformin 500 mg daily. SOCIAL HISTORY: Denies tobacco use. FAMILY HISTORY: Negative for premature CAD. REVIEW OF SYSTEMS: Unobtainable. PHYSICAL EXAMINATION: VITAL SIGNS: Blood pressure is 170/80, heart rate is 90 beats per minute. GENERAL APPEARANCE: A mildly overweight male, in mild distress. HEENT: Normocephalic, atraumatic. Oral mucosa moist. NECK: Supple. LUNGS: Clear to auscultation. CARDIAC: Regular rate and rhythm, S1, S2 positive. ABDOMEN: Soft, nontender. EXTREMITIES: No cyanosis, 1+ bilateral lower extremity edema. LABORATORY VALUES: ECG reveals sinus rhythm with inferior [place] [address] CONSULTATION Name: MONICA HURD Room: [address]#: [id number] Admission: 02/14/19 Attend Phys: Mumtaz Ayala Discharge: 02/16/19 Date of : 52 Report #: [id number] ASSESSMENT AND PLAN: 1. Acute inferior wall myocardial infarction. The patient will be taken emergently to the cardiac Online Journalist. He was treated with aspirin, Brilinta, and heparin in the ER. 2. Hypertension, hypertensive. We will resume lisinopril and metoprolol. 3. Hypercholesterolemia, continue with Lipitor. 4. Diabetes mellitus, hold metformin for now. Check fingersticks and cover with insulin. 5. Chronic obstructive pulmonary disease, continue with oxygen therapy. <ELECTRONICALLY SIGNED> By: Armando Castillo MD 02/17/19 0853 0024 0138MD kayce Anderson
== END 2019-02-16 15:10 | disposition home or self-care (01) | DRG 246 ==
LOC: M.CL 22:35 → M.ERS 22:35 → M.CL 23:05 → M.TBA-ER 23:46 → M.ICU 23:46 → M.2W 02-15 11:05
PROVIDERS: Emergency Medicine; Internal Medicine Cardiovascular Disease; ADMIT Internal Medicine
PROC: 027044Z Dilation of Coronary Artery, One Artery with Drug-eluting Intraluminal Device, Percutaneous Endoscopic Approach (ICD-10-PCS; principal; 2019-02-14)
PROC: 4A023N7 Measurement of Cardiac Sampling and Pressure, Left Heart, Percutaneous Approach (ICD-10-PCS; principal; 2019-02-14)
PROC: B211YZZ Fluoroscopy of Multiple Coronary Arteries using Other Contrast (ICD-10-PCS; principal; 2019-02-14)
PROC: 5A09357 Assistance with Respiratory Ventilation, Less than 24 Consecutive Hours, Continuous Positive Airway Pressure (ICD-10-PCS; 2019-02-15)
DX: T82.855A Stenosis of coronary artery stent, initial encounter (principal); I21.19 ST elevation (STEMI) myocardial infarction involving other coronary artery of inferior wall; I50.33 Acute on chronic diastolic (congestive) heart failure; E78.00 Pure hypercholesterolemia, unspecified; J44.9 Chronic obstructive pulmonary disease, unspecified; I25.10 Atherosclerotic heart disease of native coronary artery without angina pectoris; Y83.8 Other surgical procedures as the cause of abnormal reaction of the patient, or of later complication, without mention of misadventure at the time of the procedure; E11.9 Type 2 diabetes mellitus without complications; I11.0 Hypertensive heart disease with heart failure; I25.2 Old myocardial infarction; Z87.891 Personal history of nicotine dependence; Z79.84 Long term (current) use of oral hypoglycemic drugs; Z79.82 Long term (current) use of aspirin; Z79.899 Other long term (current) drug therapy; Z88.8 Allergy status to other drugs, medicaments and biological substances; Z91.030 Bee allergy status; Z95.5 Presence of coronary angioplasty implant and graft; Y92.89 Other specified places as the place of occurrence of the external cause; Z99.81 Dependence on supplemental oxygen

== ENCOUNTER → 2020-11-29 | Outpatient (CLI) | payer BC, OTHER ==
[~2020-11-29] MED LIST changes: +BRILINTA90 MG PO; +LIPITOR 40 MG T40 M1 PO; +METFORMIN HCL500 M3 PO
== END ==
LOC: M.RAD 13:32
PROVIDERS: ATTEND Internal Medicine Cardiovascular Disease
DX: J98.4 Other disorders of lung (principal); I25.10 Atherosclerotic heart disease of native coronary artery without angina pectoris; I10 Essential (primary) hypertension; E78.2 Mixed hyperlipidemia; G47.33 Obstructive sleep apnea (adult) (pediatric)

== ENCOUNTER 2021-01-02 16:32 | Inpatient (IN) | payer BC, OTHER ==
[~2021-01-02] VITALS: Ht 175.3 cm; Wt 110.1 kg
[2021-01-02 16:39] VITALS: BP 161/77
[2021-01-02] MEDS ORDERED: ROSUVASTATIN CA10 MG PO (16:46)
[2021-01-02] MEDS ORDERED: VITAMIN D3125 MC1 PO (16:47)
[2021-01-02] MEDS ORDERED: CO Q-10100 M1 PO (16:47)
[2021-01-02] MEDS ORDERED: OSTEO BI-FLEX1 EAC1 PO (16:47)
[2021-01-02 17:51] LABS: ABSOLUTE BASOPHILS 0.1 thou/uL (0.0-0.2); ABSOLUTE EOSINOPHILS 0.3 thou/uL (0.0-0.7); ABSOLUTE LYMPHOCYTES 1.4 thou/uL (0.8-5.3); ABSOLUTE MONOCYTES 1.3 thou/uL (0.0-1.2); ABSOLUTE NEUTROPHILS 4.9 thou/uL (1.6-8.1); EOSINOPHILS 3.8 %; HEMATOCRIT 41.4 % (42.0-52.0); HEMOGLOBIN 13.7 gm/dL (14.0-18.0); LYMPHOCYTES 17.4 %; MCH 31.7 pg (26.0-34.0); MCHC 33.1 g/dL (28.0-37.0); MCV 95.8 fL (80.0-100.0); MONOCYTES 16.5 %; MPV 8.7 fl. (7.2-11.1); NUCLEATED RBCS 0 /100WBC; PLATELET COUNT* 185 thou/uL (150-400); POLYS 61.3 %; RBC 4.32 mil/uL (4.50-6.00)
[2021-01-02 18:03] LABS: CREATININE 0.8 mg/dL (0.6-1.3); POTASSIUM 4.7 mmol/L (3.5-5.1)
[2021-01-02 18:13] LABS: ALBUMIN 3.3 g/dL (3.4-5.0); MAGNESIUM 1.8 mg/dL (1.8-2.4); TOTAL BILIRUBIN 0.3 mg/dL (<0.1-1.0); TOTAL PROTEIN 7.1 g/dL (6.4-8.2)
[2021-01-02 21:51] VITALS: BP 140/70
[2021-01-03] VITALS (7 sets, daily range): BP systolic 140–163; BP diastolic 63–87
--- NOTE | 2021-01-03 11:17 | EKG ---
[place] [address] ELECTROCARDIOGRAM REPORT Name: VICKEYMONICA MCCARTHY Room: [facility] ADM IN .R.#: [id number] Admission: 01/02/21 Attend Phys: Petar Alberts Discharge: Date of : 52 Date of Service: 01/02/21 1650 Report #: [id number] THIS REPORT FOR: //name// [facility] ED Test Date: 2021-01-02 Test Time: 16:50:01 Pat Name: MONICA HURD Department: Room: [facility] Gender: M Leather Belt Loop Cutter: AMAURY : 1950 Requested By: Joe Calderon Order Number: [id number] MD: Elbert Buck Measurements Intervals [place] Rate: 67 P: 43 MA: 166 QRS: -51 QRSD: 106 T: -13 QT: 482 QTc: 509 Interpretive Statements Sinus rhythm Ventricular premature complex Abnormal R-wave progression, late transition Inferior infarct, old Prolonged QT interval Baseline wander in lead(s) I,III,aVL Compared to ECG 02/15/2019 09:48:00 Ventricular premature complex(es) now present Prolonged QT interval now present Intraventricular conduction delay no longer present Myocardial infarct finding still present Electronically Signed On 01-03-2021 11:17:05 CDT by Elbert Buck [email or web address] <ELECTRONICALLY SIGNED> By: Elbert Buck MD, [facility] 01/03/21 1117 49 49 Elbert Buck MD, [facility] /EPI
--- NOTE | 2021-01-03 14:23 | 2DMMODE ---
[place] [address] 2 D/M-MODE ECHOCARDIOGRAM Name: MONICA HURD Room: [facility] ADM IN [place].#: [id number] Admission: 01/02/21 Attend Phys: Petar Alberts Discharge: Date of : 52 Date of Service: 01/03/21 1422 Report #: [id number] THIS REPORT FOR: cc: Steff Cortez MD, Angela Michelle MD Blick,Elbert Ravi MD [facility] ~ APPROVED REPORT Study performed: 01/03/2021 11:20:35 EXAM: Comprehensive 2D, Doppler, and color-flow Echocardiogram Patient Location: In-Patient Room #: [facility] Status: routine BSA: 2.23 HR: 87 bpm BP: 141/63 mmHg Rhythm: NSR Other Information Study Quality: Good Indications Dyspnea Chest Pain 2D Dimensions IVSd: 9.63 (7-11mm) LVOT Diam: 22.67 (18-24mm) LVDd: 57.22 mm PWd: 10.21 (7-11mm) Ascending Ao: 34.58 (22-36mm) LVDs: 34.05 (25-40mm) Aortic Root: 37.75 mm Volumes Left Atrial Volume (Systole) LA ESV Index: 22.90 mL/m2 Aortic Valve AoV Peak Noble.: 1.97 m/s AO Peak Gr.: 15.49 mmHg LVOT Max P.52 mmHg AO Mean Gr.: 8.41 mmHg LVOT Mean P.26 mmHg LVOT Max V: 1.46 m/s AO V2 VTI: 36.34 cm LVOT Mean V: 0.80 m/s MADAN (VTI): 3.02 cm2 LVOT V1 VTI: 27.15 [place] [address] 2 D/M-MODE ECHOCARDIOGRAM Name: MONICA HURD Room: [address] IN [facility].#: [id number] Admission: 01/02/21 Attend Phys: Petar Alberts Discharge: Date of : 52 Date of Service: 01/03/21 1422 Report #: [id number] Mitral Valve E/A Ratio: 0.70 MV Decel. Time: 196.83 ms MV E Max Noble.: 0.80 m/s MV PHT: 57.08 ms MVA (PHT): 3.85 cm2 TDI E/Medial E': 4.71 Medial E' Noble.: 0.17 m/s Pulmonary Valve PV Peak Noble.: 1.28 m/s PV Peak Gr.: 6.56 mmHg Left Ventricle The left ventricle is normal size. There is normal LV segmental wall motion. There is normal left ventricular wall thickness. Left ventricular systolic function is normal. The left ventricular ejection fraction is within the normal range. LVEF is 55-60%. Grade I - abnormal relaxation pattern. Right Ventricle The right ventricle is normal size. The right ventricular systolic function is normal. Atria The left atrium size is normal. The right atrium size is normal. Aortic Valve The aortic valve is normal in structure. No aortic regurgitation is present. There is no aortic valvular stenosis. Mitral Valve The mitral valve is normal in structure. There is trace mitral valve regurgitation noted. No evidence of mitral valve stenosis. Tricuspid Valve The tricuspid valve is normal in structure. Unable to assess PA pressure. Trace tricuspid regurgitation. Pulmonic Valve The pulmonary valve is normal in structure. [place] [address] 2 D/M-MODE ECHOCARDIOGRAM Name: MONICA HURD Room: [address] IN [facility]#: [id number] Admission: 01/02/21 Attend Phys: Petar Alberts Discharge: Date of : 52 Date of Service: 01/03/21 1422 Report #: [id number] Great Vessels The aortic root is normal in size. IVC is normal in size and collapses >50% with inspiration. Pericardium There is no pericardial effusion. <Conclusion> Left ventricular systolic function is normal. The left ventricular ejection fraction is within the normal range. <ELECTRONICALLY SIGNED> By: Elbert Buck MD, FACC 01/03/211421 21 21 Elbert Buck MD, FACC /INF
--- NOTE | 2021-01-03 16:03 | CON ---
[address] [address] CONSULTATION Name: MONICA HURD Room: [place] [address] ADM IN M.Angi.#: [id number] Admission: 01/02/21 Attend Phys: Mumtaz Ayala Discharge: Date of : 52 Report #: [id number] THIS REPORT FOR: cc: Steff Cortez MD,Steff Buck,Elbert Ravi MD [facility] ~ cc: Steff Cortez MD DATE OF CONSULTATION: 01/03/2021 CARDIOLOGY CONSULTATION HISTORY OF PRESENT ILLNESS: The patient is a 70-year-old white male who I was asked to see in the hospital today after he complained of being short of breath. The patient had a coronary stent placed here at [facility] [place] years ago. He presented in 12/2018 with a myocardial infarction. 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 He last saw Dr. Raymond in September of this year here at [place]. He complained of exertional dyspnea and Dr. Raymond recommended discontinue Brilinta and he was referred to a radiotelephone operator. Recently, the patient had increasing shortness of breath. He is unable to lie flat in bed at night. He has been coughing. He denied any significant chest pain, jaw pain or arm pain. He has had no fever or edema. He denied any palpitations or syncope. Because of shortness of breath, his finally brought him to the Emergency Room last night and he was admitted for further evaluation and treatment. PAST MEDICAL HISTORY: He has had previous cholecystectomy, hernia repair, rotator cuff surgery. He previously had a spinal cord stimulator implant, which was subsequently discontinued. He has a history of hypertension, diabetes, hyperlipidemia. CURRENT MEDICATIONS: Include allopurinol, aspirin, lisinopril, metformin, metoprolol, Lipitor. ALLERGIES: He has no known drug allergies. FAMILY HISTORY: His brother of heart attack. SOCIAL HISTORY: He is . He and his live in [place], [place]. He is retired from [employer]. Used to smoke a pack of cigarettes a day, quit in the . Rarely drinks alcohol. REVIEW OF SYSTEMS: He has no history of stroke. He does have sleep apnea, uses CPAP. He uses oxygen at night, also during the day for increased shortness of breath. No history of liver disease, kidney disease, cancer, [place] [address] CONSULTATION Name: MONICA HURD Room: [address] IN [facility]#: [id number] Admission: 01/02/21 Attend Phys: Mumtaz Ayala Discharge: Date of : 52 Report #: [id number] illness, chronic skin condition or psychiatric illness. PHYSICAL EXAMINATION: GENERAL: Revealed an elderly male, appeared in no distress. VITAL SIGNS: His blood pressure 140/60, pulse 70, he is afebrile. HEENT: He was anicteric. Conjunctivae pink. Mucous membranes are moist. NECK: Veins not distended. No carotid bruits. Neck is supple. CHEST: Revealed distant breath sounds. CARDIAC: Regular rate and rhythm. No murmurs. ABDOMEN: Obese. EXTREMITIES: Had no pitting edema. Dorsalis pedis pulse 2+ bilaterally. SKIN: Cool and dry. NEUROLOGIC: Nonfocal. IMAGING DATA: His ECG on admission showed a sinus rhythm, PVC, evidence of previous inferior infarction. His echocardiogram in 02/2019 showed an ejection fraction of 55%. His workup last night, he had a chest x-ray showed cardiomegaly, atelectasis and scarring. He actually had a CT scan of the chest using a PE protocol that showed no evidence of pulmonary embolus. Cardiomegaly, coronary artery calcification, small effusion, atelectasis, elevated right hemidiaphragm. LABORATORY DATA: Potassium 4.7, creatinine 0.8. His liver function studies were normal. High sensitivity troponin was 27. BNP 344. His hematocrit 41.4. His COVID antigen stat test was negative. IMPRESSION AND RECOMMENDATIONS: 1. Chronic obstructive pulmonary disease. 2. Coronary artery disease. No significant angina. I would not recommend stress testing at this time. 3. Hypertension. The patient is on an angiotensin-converting enzyme inhibitor and beta-elvin. 4. Hyperlipidemia. The patient is on a statin drug. 5. Diabetes. The patient is on Metformin. 6. Obesity. The patient is 5 feet 9 inches, 240 pounds. 7. Sleep apnea. The patient uses continuous positive airway pressure therapy. 8. Previous tobacco abuse. 9. Chronic back pain. The patient no longer has a nerve stimulator in place. <ELECTRONICALLY SIGNED> By: Elbert Buck MD, FACC 01/03/21 1603 [id number] Buck MD, FACC /nt
[2021-01-04 04:39] VITALS: BP 140/66
[2021-01-04 05:22] LABS: ANION GAP 1 mmol/L (7-16); BUN 11 mg/dL (7-18); CALCIUM 9.6 mg/dL (8.5-10.1); CHLORIDE 96 mmol/L (98-107); CHOLESTEROL 116 mg/dL (<200); CO2 41 mmol/L (21-32); CREATININE 0.7 mg/dL (0.6-1.3); GLUCOSE 161 mg/dL (70-99); HDL CHOLESTEROL 37 mg/dL (>40); LDL CHOLESTEROL 47 mg/dL (<100); POTASSIUM 4.5 mmol/L (3.5-5.1); SODIUM 138 mmol/L (136-145); TC:HDL 3.1 Ratio (Not establshd); TRIGLYCERIDE 160 mg/dL (<150); VLDL 32 mg/dL (<40)
[2021-01-04 05:38] LABS: SERUM ASSESSMENT CLEAR
[2021-01-04 09:00] VITALS: BP 130/110
[2021-01-04 12:42] VITALS: BP 138/66
[2021-01-04 16:43] VITALS: BP 138/66
[2021-01-04 17:58] VITALS: BP 141/83
== END 2021-01-04 17:30 | disposition home or self-care (01) | DRG 191 ==
LOC: M.ERS 16:32 → M.TBA-ER 18:43 → M.2W 18:43
PROVIDERS: Emergency Medicine Emergency Medical Services; Internal Medicine Cardiovascular Disease; ADMIT Internal Medicine; ATTEND Internal Medicine
DX: J44.1 Chronic obstructive pulmonary disease with (acute) exacerbation (principal); J98.11 Atelectasis; E78.00 Pure hypercholesterolemia, unspecified; E11.9 Type 2 diabetes mellitus without complications; I10 Essential (primary) hypertension; E78.5 Hyperlipidemia, unspecified; I25.10 Atherosclerotic heart disease of native coronary artery without angina pectoris; E66.9 Obesity, unspecified; G47.30 Sleep apnea, unspecified; G89.29 Other chronic pain; M10.9 Gout, unspecified; M54.9 Dorsalgia, unspecified; Z20.822 Contact with and (suspected) exposure to COVID-19; Z79.82 Long term (current) use of aspirin; Z79.84 Long term (current) use of oral hypoglycemic drugs; Z95.5 Presence of coronary angioplasty implant and graft; Z68.35 Body mass index [BMI] 35.0-35.9, adult; Z87.891 Personal history of nicotine dependence; Z79.899 Other long term (current) drug therapy; Z88.8 Allergy status to other drugs, medicaments and biological substances; Z91.030 Bee allergy status; Z90.49 Acquired absence of other specified parts of digestive tract

== ENCOUNTER → 2021-02-13 | Outpatient (CLI) | payer BC, OTHER ==
[~2021-02-13] MED LIST changes: +CO Q-10100 M1 PO; +FUROSEMIDE 40 M40 MG PO; +NAC600 MG PO; +OSTEO BI-FLEX1 EAC1 PO; +PEPCID20 MG PO; +ROSUVASTATIN CA10 MG PO; +SPIRIVA INH; +VITAMIN C1000 MG PO; +VITAMIN D3125 MC1 PO
[2021-02-13 16:59] LABS: ABSOLUTE LYMPHOCYTES 1.5 thou/uL (0.8-5.3); ABSOLUTE NEUTROPHILS 3.9 thou/uL (1.6-8.1); HEMOGLOBIN 12.4 gm/dL (14.0-18.0); MCV 95.5 fL (80.0-100.0); NUCLEATED RBCS 0 /100WBC; RDW-CV 14.7 % (10.5-14.5)
[2021-02-13 17:01] LABS: ABSOLUTE BASOPHILS 0.1 thou/uL (0.0-0.2); ABSOLUTE EOSINOPHILS 0.5 thou/uL (0.0-0.7); ABSOLUTE MONOCYTES 0.8 thou/uL (0.0-1.2); EOSINOPHILS 7.7 %; HEMATOCRIT 37.5 % (42.0-52.0); LYMPHOCYTES 22.3 %; MCH 31.5 pg (26.0-34.0); MONOCYTES 11.3 %; PLATELET COUNT* 213 thou/uL (150-400); POLYS 57.7 %; RBC 3.92 mil/uL (4.50-6.00); WBC 6.7 thou/uL (4.0-11.0)
[2021-02-13 17:09] LABS: BE 5.8 mmol/L (-2 to +3); PO2 94.1 mmHg (75.0-100.0); pH 7.342 (7.340-7.450)
[2021-02-13 17:12] LABS: ALBUMIN 3.4 g/dL (3.4-5.0); CALCIUM 9.2 mg/dL (8.5-10.1); CREATININE 0.7 mg/dL (0.6-1.3); MAGNESIUM 1.9 mg/dL (1.8-2.4); POTASSIUM 4.3 mmol/L (3.5-5.1); TOTAL BILIRUBIN 0.2 mg/dL (<0.1-1.0); TOTAL PROTEIN 7.1 g/dL (6.4-8.2)
[2021-02-13 17:17] LABS: PCO2 63.2 mmHg (35.0-45.0)
== END ==
LOC: M.ULTRA 15:30
PROVIDERS: ATTEND Internal Medicine Critical Care Medicine
DX: J96.11 Chronic respiratory failure with hypoxia (principal); R91.8 Other nonspecific abnormal finding of lung field; R60.0 Localized edema

== ENCOUNTER 2021-02-14 11:28 | Inpatient (IN) | payer BC, OTHER ==
[~2021-02-14] VITALS: Ht 175.3 cm; Wt 109.8 kg
[~2021-02-14 11:28] MED LIST changes: -FUROSEMIDE 40 M40 MG PO; -NAC600 MG PO; -PEPCID20 MG PO; -SPIRIVA INH; -VITAMIN C1000 MG PO
[2021-02-14 11:31] VITALS: BP 150/63
[2021-02-14] MEDS ORDERED: FUROSEMIDE 40 M40 MG PO (11:35)
[2021-02-14 16:57] LABS: ABSOLUTE BASOPHILS 0.1 thou/uL (0.0-0.2); ABSOLUTE EOSINOPHILS 0.5 thou/uL (0.0-0.7); ABSOLUTE LYMPHOCYTES 1.5 thou/uL (0.8-5.3); ABSOLUTE MONOCYTES 0.6 thou/uL (0.0-1.2); ABSOLUTE NEUTROPHILS 4.7 thou/uL (1.6-8.1); BASOPHILS 0.9 %; EOSINOPHILS 6.2 %; HEMATOCRIT 40.7 % (42.0-52.0); HEMOGLOBIN 13.3 gm/dL (14.0-18.0); LYMPHOCYTES 20.6 %; MCH 31.2 pg (26.0-34.0); MCHC 32.7 g/dL (28.0-37.0); MCV 95.6 fL (80.0-100.0); MONOCYTES 8.1 %; MPV 8.7 fl. (7.2-11.1); NUCLEATED RBCS 0 /100WBC; PLATELET COUNT* 213 thou/uL (150-400); POLYS 64.2 %; RBC 4.26 mil/uL (4.50-6.00); RDW-CV 15.2 % (10.5-14.5); WBC 7.3 thou/uL (4.0-11.0)
[2021-02-14 17:07] LABS: CALCIUM 9.6 mg/dL (8.5-10.1); CREATININE 0.7 mg/dL (0.6-1.3); POTASSIUM 4.7 mmol/L (3.5-5.1)
[2021-02-14 17:10] LABS: ALBUMIN 3.9 g/dL (3.4-5.0); TOTAL BILIRUBIN 0.4 mg/dL (<0.1-1.0); TOTAL PROTEIN 7.6 g/dL (6.4-8.2)
--- NOTE | 2021-02-14 19:14 | EKG ---
[place] [address] ELECTROCARDIOGRAM REPORT Name: VICKEYMONICA Room: [place] [address] ADM IN ..#: [id number] Admission: 02/14/21 Attend Phys: David Ma Discharge: Date of : 52 Date of Service: 02/14/211741 Report #: [id number] THIS REPORT FOR: //name// [facility] ED Test Date: 2021-02-14 Test Time: 17:42:31 Pat Name: MONICA HURD Department: Room: [facility] Gender: M Housing Development Specialist: MARIO : 1950 Requested By: Karla Ward Order Number: [id number] MD: Elbert Buck Measurements Intervals [place] Rate: 54 P: 13 CA: 181 QRS: -27 QRSD: 105 T: 4 QT: 436 QTc: 414 Interpretive Statements Sinus bradycardia nonspecific t wave changes Inferior infarct, old Compared to ECG 01/02/2021 16:50:01 Ventricular premature complex(es) no longer present Prolonged QT interval no longer present Myocardial infarct finding still present Electronically Signed On 02-14-2021 19:13:58 WAITER by Elbert Buck [email or web address] <ELECTRONICALLY SIGNED> By: Elbert Buck MD, FACC 02/14/21 1913 41 41 Elbert Buck MD, FACC /EPI
[2021-02-14 22:00] VITALS: BP 133/46
[2021-02-15] VITALS (7 sets, daily range): BP systolic 122–147; BP diastolic 55–79
--- NOTE | 2021-02-15 09:00 | NUR ---
I ASSUMED CARE OF THE PATIENT AT 0700. HE IS ALERT AND ORIENTED X4 AND IS CURRENTLY BOARDED IN THE ED. PATIENT NEEDS ARE MET DURING HOURLY ROUNDING. HE IS AD GIOVANNY IN THE ROOM. GLUCOSE IS MONITORED AND NEW ORDER FOR LOW DOSE SLIDING SCALE INSULIN IS OBTAINED. OXYGEN IS BEING TITRATED. CALL LIGHT IS IN REACH AND BED IS IN THE LOW LOCKED POSITION. WILL CONTINUE TO MONITOR.
[2021-02-15 14:00] LABS: CALCIUM 9.6 mg/dL (8.5-10.1); CREATININE 0.8 mg/dL (0.6-1.3); MAGNESIUM 1.9 mg/dL (1.8-2.4); POTASSIUM 4.6 mmol/L (3.5-5.1)
[2021-02-15] MEDS ORDERED: PEPCID20 MG PO (15:04)
[2021-02-15] MEDS ORDERED: NAC600 MG PO (15:04)
[2021-02-15] MEDS ORDERED: SPIRIVA INH (15:04)
[2021-02-15] MEDS ORDERED: VITAMIN C1000 MG PO (15:04)
[2021-02-16 01:35] VITALS: BP 111/52
--- NOTE | 2021-02-16 04:33 | NUR ---
PATIENT UP FROM ER VIA CART TO ROOM 223. PT ALERT/ORIENTED X4, PLEASANT. PT ON O2 @ 3 LITERS PER NASAL CANNULA. PT IS SALINE LOCKED. PT IS AN ACCUCHECK WITH ER BLOOD SUGER OF 367; LISPRO 20 UNITS GIVEN BY FARM MACHINERY ENGINE MECHANIC. PT DENIES PAIN/NAUSEA. PT WITH WOUND ON LT BUTTOCKS APPEARING TO BE A POPPED BLISTER. PT REFUSING PICTURES. WOUND IS RANCH HELPER. PT SAYS HE HAS HAD THIS FOR SEVERAL MONTHS. REDNESS AROUND AREA. PT SAYS HE HAS BEEN PUTTING PEROXIDE AND RUBBING ALCOHOL ON IT AND IT GOES AWAY BUT RETURNS. WOUND HAS HAD SOME OOZING PER PT. PT DENIES NEEDS AT THIS TIME. FREQUENTLY USED ITEMS AND CALL LIGHT WITHIN REACH. SIDERAILS UPX2. WILL CONTINUE TO MONITOR.
[2021-02-16 05:08] LABS: HEMATOCRIT 36.8 % (42.0-52.0); HEMOGLOBIN 12.1 gm/dL (14.0-18.0); MCH 30.8 pg (26.0-34.0); MCHC 32.8 g/dL (28.0-37.0); MCV 93.9 fL (80.0-100.0); MPV 8.8 fl. (7.2-11.1); NUCLEATED RBCS 0 /100WBC; PLATELET COUNT* 225 thou/uL (150-400); RBC 3.91 mil/uL (4.50-6.00); RDW-CV 14.7 % (10.5-14.5); WBC 12.8 thou/uL (4.0-11.0)
[2021-02-16 05:56] VITALS: BP 131/57
[2021-02-16 06:03] LABS: CALCIUM 9.2 mg/dL (8.5-10.1); CREATININE 0.9 mg/dL (0.6-1.3); MAGNESIUM 2.1 mg/dL (1.8-2.4); POTASSIUM 4.4 mmol/L (3.5-5.1)
[2021-02-16 07:26] LABS: ABSOLUTE LYMPHOCYTES 0.3 thou/uL (0.8-5.3); ABSOLUTE MONOCYTES 0.8 thou/uL (0.0-1.2); ABSOLUTE NEUTROPHILS 11.8 thou/uL (1.6-8.1)
[2021-02-16 07:29] LABS: PLATELET ESTIMATE ADEQUATE
[2021-02-16 08:00] VITALS: BP 121/68
[2021-02-16 12:00] VITALS: BP 133/50
[2021-02-16] MEDS ORDERED: DOXYCYCLINE 10100 MG PO (13:48)
[2021-02-16] MEDS ORDERED: PREDNISONE 10 M10 MG PO (13:48)
[2021-02-16 16:00] VITALS: BP 133/73; BP 143/74
[2021-02-16 16:03] LABS: CALCIUM 9.4 mg/dL (8.5-10.1); CREATININE 1.4 mg/dL (0.6-1.3); MAGNESIUM 1.9 mg/dL (1.8-2.4); POTASSIUM 4.6 mmol/L (3.5-5.1)
--- NOTE | 2021-02-16 16:41 | NUR ---
PER MAIRA DONOVAN, TRILOGY WILL BE DELIVERED TOMORROW 02/17. PER DR FUNG, PT TO DC WHEN TRILOGY ARRIVES. PT DIURESED WELL TODAY. COMPLAINED OF A HEADACHE THIS AM-TREATED WITH PRN TYLENOL WITH PARTIAL RELIEF. DENIES ANY SHORTNESS OF BREATH. ON 3L NC SAT MID 90'S. PT UP AD GIOVANNY IN ROOM. AT BEDSIDE THROUGHOUT SHIFT. AM ASSESSMENT CHARTED. MEDS PER MAY. CALL LIGHT WITHIN REACH. HOURLY ROUNDING OBSERVED. WILL CONTINUE PLAN OF CARE.
[2021-02-16 20:00] VITALS: BP 146/74
[2021-02-17 00:56] VITALS: BP 110/60
[2021-02-17 04:30] VITALS: BP 122/56
[2021-02-17 04:36] LABS: CREATININE 0.9 mg/dL (0.6-1.3); MAGNESIUM 2.2 mg/dL (1.8-2.4); POTASSIUM 4.8 mmol/L (3.5-5.1)
--- NOTE | 2021-02-17 04:49 | NUR ---
PATIENT SLEPT WELL DURING THIS SHIFT. PT ON O2 @ 3 LITERS PER NASAL CANNULA. PT VOIDS YELLOW URINE PER URINAL. PT SR ON SWINE EXTENSION FIELD SPECIALIST. PT REQUESTED TYLENOL X2 FOR HEADACHE. PT ABLE TO RETURN TO SLEEP AFTERWARDS. PT WITH 2100 BLOOD SUGAR OF 214; LISPRO 10UNITS GIVEN. FREQUENTLY USED ITEMS AND CALL LIGHT WITHIN REACH. SIDERAILS UPX2. WILL CONTINUE TO MONITOR.
[2021-02-17 08:00] VITALS: BP 151/49
[2021-02-17 13:56] VITALS: BP 151/49
--- NOTE | 2021-02-17 16:08 | CON ---
[address] [address] CONSULTATION Name: MONICA HURD Room: [address] IN M.R.#: [id number] Admission: 02/14/21 Attend Phys: Florian Nam Discharge: 02/17/21 Date of : 52 Report #: [id number] THIS REPORT FOR: cc: Steff Cortez MD, Angela Michelle MD Pervez, Adeel MD ~ DATE OF CONSULTATION: 02/15/2021 CONSULT HAS BEEN REQUESTED BY: Hospitalist Service. INDICATION FOR CONSULTATION: Shortness of breath. HISTORY OF PRESENT ILLNESS: A 70-year-old gentleman, past medical history includes an extensive history of smoking. The patient discontinued in 1990. He does have a history of coronary artery disease as well and has had 2 stents placed. Left ventricular ejection fraction on the last echo is normal at 55-60% without significant elevation in right heart pressures. The patient also does have obstructive sleep apnea and uses a CPAP at home. Last sleep study in 2018 shows an apnea-hypopnea index of 32. He was prescribed a CPAP of 19 cm of water. The patient is on long-term oxygen therapy. He was admitted to the hospital last in December. Since then, he has been on 5 liters oxygen continuous. The patient came to my office on 02/13/2021. At that time, he was reporting a significant increase in shortness of breath. He stated the shortness of breath was primarily on exertion, but also while he is not significantly short of breath sitting up, he has had significant orthopnea. In fact over the last 2 weeks, he therefore has not been able to lay flat in bed and has been sleeping in a recliner. The patient says that he previously was compliant with his CPAP; however, for the last 2 weeks due to significant orthopnea, he did not sleep in his bed and therefore did not use the CPAP either. The patient was treated with an antibiotic 2 weeks ago. At that time, he was having a significant amount of yellow sputum production. This was either Augmentin or amoxicillin, more likely Augmentin. The patient's sputum production since then changed to clear. He, however, continues to have orthopnea, continues to have swelling of lower extremities as well, continues to have disturbed sleep at night as well as sleepiness during the day. Upon evaluation, the patient appeared to be fluid overloaded; therefore, I asked him to double his dose of Lasix. He was taking 20 mg. I asked him to 40. I also ordered several labs. These included a chest x-ray which does show increase in pulmonary vascular congestion. We performed arterial blood gas, which shows a pCO2 significantly elevated to 63, but a normal pH. Venous Dopplers were performed. These were negative and therefore contrary to the documentation in the records, I did not have any suspicion of a DVT prior [place] [address] CONSULTATION Name: MONICA HURD Room: [address] IN [facility].#: [id number] Admission: 02/14/21 Attend Phys: Florian Nam Discharge: 02/17/21 Date of : 52 Report #: [id number] Emergency Room. Various labs were also ordered for 02/13 in [facility]. There was only mild elevation in D-dimer at 1.07. It appeared to me that the primary etiology of the patient's shortness of breath was fluid overload with a component of bronchospasm as well. I had offered him a prednisone taper when he was in the office; however, the patient at that time declined due to concerns about that it may decrease his resistance to COVID should he contracts the virus. Upon review of his labs and arterial blood gas and other investigations, I decided to sent him to the Emergency Room. I did talk to the charge nurse before he arrived at the Emergency Room. Since arrival to the Emergency Room yesterday, he in fact reports improvement in his shortness of breath, but he still has significant swelling of lower extremities; however, his shortness of breath is better likely due to the steroids he has received. His oxygen needs remain unchanged. He continues to have swelling of lower extremities. REVIEW OF SYSTEMS: The patient's review of systems is negative for 12 points except as mentioned above. PAST MEDICAL HISTORY: Coronary artery disease, status post stents, left ventricular ejection fraction 55-60% without elevation in right heart pressures on the last echo. Spirometry performed 2 days ago in my office is consistent with severe restriction. I suspect that there is a significant component of underlying obstruction as well consistent with COPD, the patient had not previously been diagnosed. Long-term oxygen as above, cholecystectomy, hernia repair, rotator cuff surgery, spinal cord stimulator implant, which was subsequently discontinued, hypertension, diabetes, hyperlipidemia. His baseline creatinine is normal at 0.7. SOCIAL HISTORY: An extensive history of smoking in the past, discontinued in 1990. No known history of heavy alcohol use or illegal drug use. CURRENT MEDICATIONS: List in [place] reviewed. HOME MEDICATIONS: List also in [place] reviewed. FAMILY HISTORY: Diabetes and heart disease. PHYSICAL EXAMINATION: GENERAL: He is alert, awake and oriented. VITAL SIGNS: Has a pulse of 80 and a blood pressure of 134/67. He is [address] [place] [address] CONSULTATION Name: MONICA HURD Room: [address] IN M.R.#: [id number] Admission: 02/14/21 Attend Phys: Florian Nam Discharge: 02/17/21 Date of : 52 Report #: [id number] saturating 92%, was on 3 liters nasal cannula. Respiratory rate is 70-80 and he is afebrile with a temperature of 36.5. HEENT: Head is normocephalic and atraumatic. Pupils are equal. There is no throat erythema. There is no thrush in his throat. NECK: Does not show raised JVP, asymmetry, mass or lymph nodes. CHEST: Symmetrical expansion on inspection and palpation. On auscultation, breath sounds are bilaterally equal, but decreased. Expirations are prolonged. I do not hear any added sounds. HEART: Regular. There is a soft systolic murmur. ABDOMEN: Soft and nontender. SKIN: Dry and intact. EXTREMITIES: Lower extremities do show 2+ edema bilaterally. There is no calf tenderness. SKIN: Dry and intact. NEUROLOGIC: Moves all extremities bilaterally equally and spontaneously with no focal deficit identified. LABORATORY DATA: The patient did have a CTA chest performed yesterday. This is in [facility] and is reviewed. Chest x-ray performed yesterday as well as on the night in [facility] reviewed. Lab work was performed during this admission as well as on 02/13/2021 and previously in [facility] reviewed. ASSESSMENT AND PLAN: 1. Acute on chronic hypoxemic/hypercarbic respiratory failure. There is considerable CO2 retention with a pCO2 of 63. The patient's pH, however, is normal. He does have a CPAP at home. I do not feel that CPAP will be sufficient to control his chronic hypercarbic respiratory failure. Therefore, I recommend setting up a Trelegy or Astral device for use while asleep and as needed at home. Noninvasive mechanical ventilation long-term is required to treat his chronic hypercarbic respiratory failure secondary to chronic obstructive pulmonary disease and fluid overload to reduce readmission rate as well as delay his eventual . I did order a BiPAP and AVAPS mode for tonight. I understand that our hospital has a critical shortage of BiPAPs due to the COVID-19 pandemic. I did therefore indicate to the respiratory therapist that in case there is a shortage of BiPAP tonight, then it is okay to hold off, but he does need a Trelegy or Astral long-term as above. 2. Fluid overload. I feel this is playing a significant role in his decompensation. I recommend giving him IV Lasix. I had ordered one dose of Aldactone now and another dose tomorrow morning. I am judicious in use of Lasix as he just received IV dye last evening. If he remains fluid overloaded, then we will consider more Lasix. Me in the short-term consider increasing his baseline dose at home from 20 mg to [place] [address] CONSULTATION Name: MONICA HURD Room: [address] IN M.R.#: [id number] Admission: 02/14/21 Attend Phys: Florian Nam Discharge: 02/17/21 Date of : 52 Report #: [id number] 3. Chronic obstructive pulmonary disease exacerbation. We will give him nebulized bronchodilators. We will also give him more Solu-Medrol, although I cut down the dose. So I feel it is better than this could be switched over to prednisone tomorrow morning. I have already ordered a Trelegy Ellipta inhaler as well as p.r.n. albuterol inhaler and Singulair for him to use long-term at his home through my office. He has already been treated with either Augmentin or amoxicillin. Potentially, we can give him an antibiotic; however, I do not feel strongly about it at this time. I do not see any obvious sign of a bacterial infection at this time. 4. Chronic rhinitis. We will give him a few doses of aspirin, but I would recommend not using it shelter. Singulair as ordered as above. 5. Obstructive sleep apnea, see discussion above. 6. Deep venous thrombosis prophylaxis, Lovenox. 7. Evaluation for thromboembolic phenomena. As noted above, the patient's venous Dopplers were negative prior to him being sent to the Emergency Room and therefore there was no suspicion of deep venous thrombosis on presentation. CTA chest is also negative for pulmonary emboli. 8. Vaccination. The patient has already been vaccinated with 2 doses of mRNA vaccine. I suggested him to go ahead and get the booster as well once he is off steroids. DISPOSITION: The hospitalist service is indicated. It is okay for you that he is okay for discharge from their point of view and okay with Pulmonary. I recommended that he be kept in the hospital overnight and we will reassess in a.m. Thanks for this consultation. <ELECTRONICALLY SIGNED> By: Higinio Donovan MD 02/17/21 1608 01 2037Awanda Donovan MD /nt
--- NOTE | 2021-02-17 16:37 | NUR ---
CM ASSESSMENT: PT A&O, AND NORMALLY INDEPENDENT WITH ADL'S AND ACTIVE. PT RESIDES AT HOME WITH SPOUSE. PT USES A CANE FOR MOBILITY. PT HAS 0 HX OF HH OR SNF. PT HAS CPAP AT HOME AND USES 4L O2 AT BASELINE PROVIDED BY [facility]. CM INFORMED THAT MOLD PREPARER HAD ATTEMPTED TO OBTAIN NON-INVASIVE VENTILATOR/ASTRAL FOR THE PT WITH APRKY. CM INFORMED BY [facility] REP THAT ADDITIONAL INFO WAS NEEDED. CM FEXED REQUESTED INFO. PT APPROVED FOR ASTRAL AND IT WILL BE DELIVERED TO THE PT'S HOME ADDRESS. CM WILL REMAIN AVAILABLE TO ASSIST AND FOLLOW NEEDED.
== END 2021-02-17 15:40 | disposition home or self-care (01) | DRG 291 ==
LOC: M.ERS 11:28 → M.2W 18:48 → M.TBA-ER 18:48 → M.2W 02-15 23:11
PROVIDERS: Internal Medicine Critical Care Medicine; Physician Assistant; ADMIT Internal Medicine; ATTEND Internal Medicine
PROC: 5A09357 Assistance with Respiratory Ventilation, Less than 24 Consecutive Hours, Continuous Positive Airway Pressure (ICD-10-PCS; principal; 2021-02-16)
DX: I50.33 Acute on chronic diastolic (congestive) heart failure (principal); J96.22 Acute and chronic respiratory failure with hypercapnia; J96.21 Acute and chronic respiratory failure with hypoxia; J44.1 Chronic obstructive pulmonary disease with (acute) exacerbation; Z20.822 Contact with and (suspected) exposure to COVID-19; G47.33 Obstructive sleep apnea (adult) (pediatric); J31.0 Chronic rhinitis; Z88.8 Allergy status to other drugs, medicaments and biological substances; Z91.030 Bee allergy status; D64.9 Anemia, unspecified; E11.65 Type 2 diabetes mellitus with hyperglycemia; Z79.4 Long term (current) use of insulin; I25.2 Old myocardial infarction; Z87.891 Personal history of nicotine dependence; Z83.3 Family history of diabetes mellitus; Z82.49 Family history of ischemic heart disease and other diseases of the circulatory system

== ENCOUNTER → 2021-02-27 | Outpatient (CLI) | payer BC, OTHER ==
[~2021-02-27] MED LIST changes: +DOXYCYCLINE 10100 MG PO; +FUROSEMIDE 40 M40 MG PO; +NAC600 MG PO; +PEPCID20 MG PO; +SPIRIVA INH; +VITAMIN C1000 MG PO
[2021-02-27 11:54] LABS: CALCIUM 9.4 mg/dL (8.5-10.1); CREATININE 0.8 mg/dL (0.6-1.3); POTASSIUM 4.7 mmol/L (3.5-5.1)
== END ==
LOC: M.LAB 11:07
PROVIDERS: ATTEND Internal Medicine Critical Care Medicine
DX: E87.79 Other fluid overload (principal)